=== PATIENT | female | born 1935 | race African-American/Black ===

== ENCOUNTER 2017-06-23 10:04 | Inpatient (IN) ==
[2017-06-23] MEDS ORDERED: 0.9 % Sodium Chloride 500 ML IVC ONE (10:11)
[2017-06-23] MEDS ORDERED: Ondansetron 4 MG/2 ML VIAL IVP ONE (10:15)
--- NOTE | 2017-06-23 10:16 | Emergency Department Note ---
Disposition Clinical Impression: Syncope Qualifiers: Syncope type: unspecified Qualified Code(s): R55 - Syncope and collapse Fall Qualifiers: Encounter type: initial encounter Qualified Code(s): W19.XXXA - Unspecified fall, initial encounter Altered mental status Qualifiers: Altered mental status type: unspecified Qualified Code(s): R41.82 - Altered mental status, unspecified Disposition: Admitted As Inpatient Condition: Fair Time of Disposition: 14:26 Fall HPI - General Chief Complaint: ED Fall Stated Complaint: fall Time Seen by Provider: 06/23/17 10:07 Source: patient, EMS Mode of arrival: EMS Limitations: no limitations Nursing Notes Reviewed: Yes Vital Signs Reviewed: Yes - History of Present Illness HPI Narrative: 81-year-old female with a history of hypertension presents via EMS for concerns after a fall. EMS provided the history stated the patient has been having a cough and cold symptoms for the past week. Patient also was having some nausea vomiting. Patient reports that she has been vomiting but denies any cough or cold. Patient does state that she ran into a door. Denies any loss of consciousness. Denies being on any blood thinners. Denying chest pain or shortness of breath. Patient is a poor historian. Anticipate further history once family arrives. - Related Data Home Medications Medication Instructions Recorded Confirmed Simvastatin [Zocor] 02/08/17 Previous Rx's Medication Instructions Recorded Lisinopril-HCTZ 20-12.5 [Prinzide 1 tab PO DAILY #30 tablet 02/08/17 20-12.5] Allergies Allergy/AdvReac Type Severity Reaction Status Date / Time No Known Allergies Allergy Verified 02/08/17 19:23 All systems ED: reviewed and negative except as stated. Constitutional: Reports: as per HPI. Denies: fever Eyes: Reports: as per HPI ENT ED: Reports: as per HPI Cardiovascular: Reports: as per HPI. Denies: chest pain Respiratory: Reports: as per HPI, cough. Denies: dyspnea Gastrointestinal: Reports: as per HPI, nausea, vomiting. Denies: abdominal pain Genitourinary: Reports: as per HPI Musculoskeletal: Reports: as per HPI Integumentary: Reports: as per HPI Neurological: Reports: as per HPI Psychiatric: Reports: as per HPI Endocrine: Reports: as per HPI Fall PMH - Past Medical History Medical history: Reports: diabetes, hypertension, other - Social History Smoking Status: Never smoker Alcohol use: Reports: none Physical Exam - General Limitations: no limitations, age General appearance: alert, in no apparent distress - Head Head exam: atraumatic, normocephalic, normal inspection - Eye Eye exam: Present: normal appearance, EOMI - ENT ENT exam: normal exam, mucous membranes moist - Neck Neck exam: Present: normal inspection, trachea midline - Chest Chest inspection: Present: normal inspection, symmetric chest wall rise - Respiratory Respiratory exam: Present: normal lung sounds bilaterally. Absent: respiratory distress - Cardiovascular Cardiovascular exam: Present: regular rate, normal rhythm - Abdominal Exam Abdominal exam: Present: soft, Non-Tender - Extremities Exam Extremities exam: Present: normal inspection. Absent: pedal edema - Back Exam Back exam: Present: normal inspection - Neurological Exam Neurological exam: Present: alert, CN II-XII intact Course Course Narrative: Patient seen and examined. Patient has no obvious injuries on exam. Patient appears to be alert and is appropriate. Patient will get a screening cardiopulmonary evaluation as well as a urinalysis which also get a chest x-ray she has been coughing during exam. And does not provide additional history. Patient is outside of the timeframe for Tamiflu and flu swab was not ordered. - Reevaluation(s) Reevaluation #1: Patient appears resting comfortably. Patient's sleeping. No acute distress. Time: 12:03 Reevaluation #2: Patient's family now present at bedside. Time: 13:21 Reevaluation #3: Had an extensive conversation with the family bedside. Family's concern about the patient's mental status as she has been acting more confused recently. Also is able to accurately describe the incident happened earlier today.The patient momentarily blacked out and hit her head. Denies hitting the floor. Family's concern because they are caring for her home and did not feel that they have the necessary resources. Time: 14:24 - Consultations Consultation #1: Spoke with Dr. Orta who is aware of the patient and admission; however, no tele beds available at this point and will continue to monitor in the ED. Time: 15:45 Vital Signs Temperature 98.8 F 06/23/17 10:10 Pulse Rate 69 06/23/17 10:10 Respiratory Rate 16 06/23/17 10:10 Blood Pressure 129/77 06/23/17 10:10 O2 Sat by Pulse Oximetry 95 06/23/17 10:10 Temperature 98.8 F 06/23/17 10:10 Pulse Rate 65 06/23/17 13:12 Respiratory Rate 14 06/23/17 17:42 Blood Pressure 115/64 06/23/17 17:42 O2 Sat by Pulse Oximetry 96 06/23/17 13:12 Oxygen Delivery Oxygen Delivery Room Air Fall - MDM Narrative Medical decision making narrative: 81-year-old female patient for evaluation for a fall. Initial history was obtained by the patient EMS. Further history provided the family. Family is concerned the patient had a syncopal fall was witnessed. Stable described the patient losing consciousness momentarily and hitting her head. Visit the patient has been more confused over the past couple days. Patient is not acting her baseline per family at bedside. Patient's exam is nonfocal. Patient has no lateralizing signs. Patient has been evaluated with chest x-ray , lab as well as UA. Patient's workup is essentially unremarkable. Patient's family is concerned they cannot care for at home. Patient has been having recurrent issues with ambulation and a fall. Given the patient's history and the family's concern the patient will be admitted for syncopal episode as well as PTOT evaluation with likely discharge planning. - Lab Data Lab results reviewed: Yes I reviewed the patient's lab results. Result diagrams: 06/23/17 10:36 06/23/17 10:36 Lab Results 06/23/17 06/23/17 06/23/17 Range/Units 10:36 10:36 10:36 WBC 7.8 (4.3-11.1) K/mcL RBC 3.42 L (3.82-4.97) M/mcL Hgb 10.9 L (11.5-15.4) g/dL Hct 32.3 L (35.3-44.9) % MCV 94.4 (83.0-100.0) fL MCH 31.9 (28.0-33.3) pg MCHC 33.7 (31.6-35.5) g/dL RDW 13.0 (11.5-14.5) % Plt Count 236 (140-400) K/mcL MPV 10.0 (9.4-12.4) fL Immature Gran % 0.4 (0-4) % Seg Neutrophils % 67.7 % Lymphocytes % 21.6 % Monocytes % 9.9 % Eosinophils % 0.1 % Basophils % 0.3 % Neutrophils # 5.3 (1.6-8.9) K/mcL Lymphocytes # 1.7 (0.6-4.6) K/mcL Monocytes # 0.8 (0.0-1.3) K/mcL Eosinophils # 0.0 (0.0-0.6) K/mcL Basophils # 0.0 (0.0-0.2) K/mcL Immature Plt Fraction 3.0 (1.1-6.1) % Sodium 132 L (136-145) mEq/L Potassium 3.1 L (3.5-5.1) mEq/L Chloride 100 (98-107) mEq/L Carbon Dioxide 26 (23-29) mEq/L BUN 20 (8-23) mg/dL Creatinine 1.29 H (0.60-1.20) mg/dL Est GFR ( Amer) 48 L (> 60) Est GFR (Non-Af Amer) 40 L (> 60) BUN/Creatinine Ratio 16 (6-26) Glucose 104 (70-105) mg/dL Calculated Osmolality 277 L (280-300) Calcium 8.4 L (8.6-10.3) mg/dL Total Bilirubin 0.3 (0.3-1.0) mg/dL Direct Bilirubin 0.0 (0.0-0.2) mg/dL Indirect Bilirubin 0.3 (0.0-1.2) mg/dL AST 32 (13-39) Units/L ALT 14 (7-52) Units/L Alkaline Phosphatase 34 (34-104) Units/L Troponin I < 0.03 (< 0.04) ng/mL Serum Total Protein 6.2 L (6.4-8.9) g/dL Albumin 3.3 L (3.5-5.7) g/dL Globulin 2.9 (2.4-3.5) g/dL Albumin/Globulin Ratio 1.1 (1.1-2.2) Urine Color (Yellow) Urine Clarity (Clear) Urine pH (5.0-8.0) pH Units Ur Specific [place] (1.010-1.025) Urine Protein (Neg-Trace) mg/dL Urine Glucose (UA) (Normal) mg/dL Urine Ketones (Negative) mg/dL Urine Blood (Negative) Urine Nitrite (Negative) Urine Bilirubin (Negative) Urine Urobilinogen (Normal) mg/dL Ur Leukocyte Esterase (Negative) Urine Microscopic RBC (0-3) per hpf Urine Microscopic WBC (0-3) per hpf Ur Squamous Epith Cells (None-Few) per lpf Amorphous Sediment (Few) Urine Bacteria (None-Few) per hpf Hyaline Casts (None-Few) per lpf Ur Culture Indicated? (NO) 06/23/17 Range/Units 11:54 WBC (4.3-11.1) K/mcL RBC (3.82-4.97) M/mcL Hgb (11.5-15.4) g/dL Hct (35.3-44.9) % MCV (83.0-100.0) fL MCH (28.0-33.3) pg MCHC (31.6-35.5) g/dL RDW (11.5-14.5) % Plt Count (140-400) K/mcL MPV (9.4-12.4) fL Immature Gran % (0-4) % Seg Neutrophils % % Lymphocytes % % Monocytes % % Eosinophils % % Basophils % % Neutrophils # (1.6-8.9) K/mcL Lymphocytes # (0.6-4.6) K/mcL Monocytes # (0.0-1.3) K/mcL Eosinophils # (0.0-0.6) K/mcL Basophils # (0.0-0.2) K/mcL Immature Plt Fraction (1.1-6.1) % Sodium (136-145) mEq/L Potassium (3.5-5.1) mEq/L Chloride (98-107) mEq/L Carbon Dioxide (23-29) mEq/L BUN (8-23) mg/dL Creatinine (0.60-1.20) mg/dL Est GFR ( Amer) (> 60) Est GFR (Non-Af Amer) (> 60) BUN/Creatinine Ratio (6-26) Glucose (70-105) mg/dL Calculated Osmolality (280-300) Calcium (8.6-10.3) mg/dL Total Bilirubin (0.3-1.0) mg/dL Direct Bilirubin (0.0-0.2) mg/dL Indirect Bilirubin (0.0-1.2) mg/dL AST (13-39) Units/L ALT (7-52) Units/L Alkaline Phosphatase (34-104) Units/L Troponin I (< 0.04) ng/mL Serum Total Protein (6.4-8.9) g/dL Albumin (3.5-5.7) g/dL Globulin (2.4-3.5) g/dL Albumin/Globulin Ratio (1.1-2.2) Urine Color Yellow (Yellow) Urine Clarity Clear (Clear) Urine pH 6.0 (5.0-8.0) pH Units Ur Specific [place] 1.025 (1.010-1.025) Urine Protein 30 H (Neg-Trace) mg/dL Urine Glucose (UA) Normal (Normal) mg/dL Urine Ketones Negative (Negative) mg/dL Urine Blood Negative (Negative) Urine Nitrite Negative (Negative) Urine Bilirubin Negative (Negative) Urine Urobilinogen Normal (Normal) mg/dL Ur Leukocyte Esterase Negative (Negative) Urine Microscopic RBC 0-3 (0-3) per hpf Urine Microscopic WBC 0-3 (0-3) per hpf Ur Squamous Epith Cells Many H (None-Few) per lpf Amorphous Sediment Few (Few) Urine Bacteria Few (None-Few) per hpf Hyaline Casts None Seen (None-Few) per lpf Ur Culture Indicated? NO (NO) - Radiology Data Radiology results reviewed: Yes I reviewed the patient's radiology results. Chest X-Ray 06/23/17 10:11 IMPRESSION: No acute process. D/ / Maria Luisa Samuel MD / Maria Luisa Samuel MD Interpreting Provider: Maria Luisa Samuel MD Head CT 06/23/17 10:21 IMPRESSION: No acute intracranial abnormality. Chronic pansinusitis. D/ / Néstor Alvse MD / Néstor Alves MD Interpreting Provider: Néstor Alves MD - EKG Data EKG attestation: Yes I reviewed and interpreted this EKG. EKG shows normal: sinus rhythm Rate: normal Rhythm: NSR [place]/QRS: normal T wave inversions noted in: v1 Interpretation: no acute changes Attestation Statement - Attestation Attestation: I examined this patient and my medical decision-making was reviewed with the Resident Physician. I agree with the documented findings, disposition and treatment plan as described except to the extent set forth below. 81-year-old female presents the ED because of syncope and fall. This was witnessed by family. She apparently became abruptly weak and then fell forward striking her head on a door and then was caught by a family member preventing her from hitting the ground. Denies any complaints upon arrival except for feeling generally weak. No associated palpitations, chest discomfort, dyspnea or diaphoresis. No focal weakness. Denies headache. She has similar episode a few days ago she did not tell anyone about. Pleasant, slightly confused elderly female in no apparent distress. Mucous membranes are slightly dry. Oropharynx clear. Neck is supple and nontender. Trachea midline. No JVD. No carotid bruits appreciated by auscultation. Chest is clear to auscultation bilaterally. Cardiac exam is regular without appreciable murmurs. Abdomen soft, nondistended and nontender. Extremities warm and dry. Neurologic exam is nonfocal. CT imaging of her head shows pansinusitis that any acute process. Metabolic workup was unremarkable. EKG without acute process. She is admitted for further workup and evaluation for the weakness and the recurring syncope
[2017-06-23 10:44] LABS: Basophils % 0.3 %; Eosinophils % 0.1 %; Hematocrit 32.3 % (35.3-44.9); Hemoglobin 10.9 g/dL (11.5-15.4); Immature Granulocytes % 0.4 % (0-4); Lymphocytes # 1.7 K/mcL (0.6-4.6); Lymphocytes % 21.6 %; Mean Corpuscular HGB Conc 33.7 g/dL (31.6-35.5); Mean Corpuscular Hemoglobin 31.9 pg (28.0-33.3); Mean Corpuscular Volume 94.4 fL (83.0-100.0); Monocytes # 0.8 K/mcL (0.0-1.3); Monocytes % 9.9 %; Neutrophils # 5.3 K/mcL (1.6-8.9); Platelet Count 236 K/mcL (140-400); Red Blood Count 3.42 M/mcL (3.82-4.97); Segmented Neutrophils % 67.7 %
[2017-06-23 11:01] LABS: Albumin 3.3 g/dL (3.5-5.7); Albumin/Globulin Ratio 1.1 (1.1-2.2); Bilirubin,Indirect 0.3 mg/dL (0.0-1.2); Bilirubin,Total 0.3 mg/dL (0.3-1.0); Calcium 8.4 mg/dL (8.6-10.3); Globulin 2.9 g/dL (2.4-3.5); Potassium 3.1 mEq/L (3.5-5.1); Total Protein 6.2 g/dL (6.4-8.9)
[2017-06-23 12:31] LABS: Bilirubin,Urine Negative (Negative); Blood,Urine Negative (Negative); Clarity,Urine Clear (Clear); Color,Urine Yellow (Yellow); Glucose,Urine (UA) Normal (Normal); Ketones,Urine Negative (Negative); Leukocyte Esterase,Urine Negative (Negative); Nitrite,Urine Negative (Negative); Protein,Urine 30 mg/dL (Neg-Trace); Specific Gravity,Urine 1.025 (1.010-1.025); Urobilinogen,Urine Normal (Normal)
[2017-06-23 12:36] LABS: Hyaline Casts,Urine None Seen per lpf (None-Few); RBC,Urine 0-3 per hpf (0-3); Squamous Epithelial Cell,Urine Many per lpf (None-Few); WBC,Urine 0-3 per hpf (0-3)
[2017-06-23 12:48] LABS: Amorphous Sediment,Urine Few (Few); Bacteria,Urine Few per hpf (None-Few)
[2017-06-23] MEDS ORDERED: Naloxone 0.4 MG/ML INJ IVP PRN (20:32)
[2017-06-23] MEDS ORDERED: Ondansetron ODT 4 MG TAB.RAPDIS SL PRN (20:32)
[2017-06-23] MEDS ORDERED: Acetaminophen 325 MG TABLET PO PRN (20:32)
[2017-06-23] MEDS ORDERED: D5% in Water 1,000 ML IVC PRN (21:07)
[2017-06-23] MEDS ORDERED: *HR* Dextrose 50 % in Water (Syg) 50 ML SYRINGE IVP PRN (21:07)
[2017-06-23] MEDS ORDERED: Dextrose Gel 15 GM/37.5 ML TUBE PO PRN ×2 (21:07)
--- NOTE | 2017-06-23 21:14 | Internal Med History&Physical ---
<Kristopher Moran - Last Filed: 06/23/17 22:44> Date of Encounter: 06/23/17 Time of Encounter: 20:00 Assessment and Plan (1) Fall Current visit: Yes Status: Acute Witnessed fall with transient loss of consciousness, per ED family states patient has been more confused lately, which they state is not her baseline, reported mild head contusion forehead with CT head negative for acute infarct, no abrasion. UA negative. CBC, electrolytes unremarkable, Creatinine 1.29, .91 in 2012 per chart review. Cardiac telemetry to assess syncopal cause. Structural echocardiogram in morning. While severe bilateral carotid stenosis unlikely, will order carotid doppler. PT/OT/social science analyst consult. Qualifiers: Encounter type: initial encounter Qualified Code(s): W19.XXXA - Unspecified fall, initial encounter (2) Altered mental status Current visit: Yes Status: Acute Unspecified etiology, no diagnosis of dementia, baseline difficult to determine , family says patient has been increasingly confused in past few weeks, no CT findings showing overt atrophy/mass effect/hydrocephalus/bleed. Qualifiers: Altered mental status type: unspecified Qualified Code(s): R41.82 - Altered mental status, unspecified (3) HTN (hypertension) Current visit: Yes Status: Acute Normotensive, continuing HCTZ-Lisinopril Qualifiers: Hypertension type: essential hypertension Qualified Code(s): I10 - Essential (primary) hypertension (4) LAKIA (acute kidney injury) Current visit: Yes Status: Acute Possible underlying CKD, GFR 48, Creatinine 1.29, per eCW chart, last Creatinine documented in 2012 at .91. Gentle hydration. On HCTZ/Lisinopril. (5) Hyponatremia Current visit: Yes Status: Acute On gentle hydration for LAKIA, on soft diet, monitoring BMP. (6) Hypokalemia Current visit: Yes Status: Acute Repleting (7) DVT prophylaxis Current visit: Yes Status: Acute CT head negative for bleed. SQ heparin 5000U q12h. Internal Medicine - H&P: HPI Admitted From: Emergency Dept Plans for Post Hospital Care: Transfer Halfway Facility History of present illness: Ms. Castellon is a 81 year old female with PMH HTN, HLD, DM2 who presents by EMS for witnessed fall with momentary loss of consciousness today. Per family, patient appeared to have become suddenly weak, hit her head against a door and was caught by family member, they state this behavior of gait change and weakness started only in the past few weeks. Pt has had a non-productive cough for the past week, without n/v/d, CXR negative. CT head negative for hydrocephalus/bleed/inderjit atrophy. Currently on telemetry. Past Med Surg Social Fam HX - Past Medical History Medical history: diabetes, hypertension, other Psychiatric history: no psych history - Social History Smoking Status: Never smoker Smokeless Tobacco Status: No Alcohol use: none Drug use: none - Family History Mother History Unknown: Yes Father History Unknown: Yes Internal Medicine - H&P: Meds Lisinopril-HCTZ 20-12.5 [Prinzide 20-12.5] 1 tab PO DAILY #30 tablet 02/08/17 [ Rx] Simvastatin [Zocor] 20 mg PO DAILY 02/08/17 [History] Multivit-Min/FA/Lycopen/Lutein [Centrum Silver Tablet] 1 each PO DAILY 06/23/17 [History] 3 Allergy/AdvReac Type Severity Reaction Status Date / Time No Known Allergies Allergy Verified 02/08/17 19:23 All Systems PM: A 10-system review of systems was performed and is negative for pertinent findings except as documented above in the HPI. - Constitutional Vitals: Temp Pulse Resp BP Pulse Ox 99.4 F 67 18 127/68 97 06/23/17 18:37 06/23/17 18:37 06/23/17 18:37 06/23/17 18:37 06/23/17 18:37 General appearance: Present: A&O X 1 (conversant, oriented to name, not to month or location), no acute distress. Absent: answers questions appropriately - Head Head exam: Present: atraumatic, normal inspection - ENT Additional comments: no dentition - Neck Neck exam general surgery: Present: full ROM - Respiratory Respiratory exam: Present: CTAB. Absent: tachypnea - Cardiovascular Cardiovascular exam: Present: RRR, +S1, +S2 - Extremities Exam Extremities exam: Present: normal capillary refill, warm. Absent: calf tenderness - Skin Additional comments: areas of hyper and hypopigmentation Internal Med - H&P Results - Labs CBC & Chem 7: 06/23/17 10:36 06/23/17 10:36 <Charity Jean - Last Filed: 06/24/17 03:38> Date of Encounter: 06/23/17 Internal Medicine - H&P: HPI History of present illness: Ms. Castellon is a 81 year old female All Systems PM: A 10-system review of systems was performed and is negative for pertinent findings except as documented above in the HPI. - Constitutional Vitals: Temp Pulse Resp BP Pulse Ox 99.5 F 70 15 121/68 96 06/23/17 22:49 06/23/17 22:49 06/23/17 22:49 06/23/17 22:49 06/23/17 22:49 Internal Med - H&P Results - Labs CBC & Chem 7: 06/23/17 10:36 06/23/17 10:36 - Attending Attestation Patient is an 81y/o female admitted for acute change in mental status and s/p fall. Unclear of patient's baseline mental status Currently oriented to self AMS of unclear etiology, no metabolic insufficiencies present to contribute to the acute change electrolyte abnormalities noted and are repleting will obtain 2D echo, carotid dopplers for syncope work up Heparin SQ for DVT ppx Gentle IV fluids for LAKIA labs and vitals reviewed. Case discussed with resident physician Kristopher Moran, I agree with his documented findings, assessment, and plan except as listed above.
[2017-06-23 21:39] LABS: Hemoglobin A1C 5.7 %
[2017-06-24] MEDS: *HR* Heparin 5,000 UNIT/ML VIAL SQ SCH ×3 (00:02→17:52)
[2017-06-24] MEDS: 0.9 % Sodium Chloride 1,000 ML IVC SCH ×3 (00:02→21:40)
[2017-06-24 06:12] LABS: Basophils % 0.4 %; Hemoglobin 9.8 g/dL (11.5-15.4); Immature Granulocytes % 0.2 % (0-4); Lymphocytes # 1.6 K/mcL (0.6-4.6); Lymphocytes % 31.3 %; Mean Corpuscular HGB Conc 33.8 g/dL (31.6-35.5); Mean Corpuscular Hemoglobin 31.9 pg (28.0-33.3); Mean Corpuscular Volume 94.5 fL (83.0-100.0); Mean Platelet Volume 9.8 fL (9.4-12.4); Monocytes # 0.6 K/mcL (0.0-1.3); Monocytes % 11.2 %; Neutrophils # 2.9 K/mcL (1.6-8.9); Platelet Count 204 K/mcL (140-400); Red Blood Count 3.07 M/mcL (3.82-4.97); Segmented Neutrophils % 56.9 %
[2017-06-24 06:32] LABS: Calcium 7.9 mg/dL (8.6-10.3); Magnesium 1.7 mg/dL (1.6-2.6); Phosphorous 2.8 mg/dL (2.7-4.5); Potassium 3.3 mEq/L (3.5-5.1)
[2017-06-24] MEDS ORDERED: Insulin LISPRO 300 UNITS/3 ML VIAL SQ SCH ×2 (07:30→21:00)
--- NOTE | 2017-06-24 08:37 | Electrocardiograph Report ---
[facility] Test Date: 2017-06-23 Pat Name: Michael Castellon Department: 102 Room: 3B31 Gender: F Kitchen And Bath Designer: : [id number] Requested By: Dimitry Samaniego Order Number: [id number] Reading MD: Manuel Lopez DO Measurements Intervals [place] Rate: 64 P: 5 VT: 126 QRS: -22 QRSD: 74 T: 29 QT: 399 QTc: 409 Interpretive Statements SINUS RHYTHM WITH SINUS ARRHYTHMIA BORDERLINE LEFT AXIS DEVIATION [QRS AXIS < -20] WARNING: DATA QUALITY MAY AFFECT INTERPRETATION Electronically Signed On 06-24-2017 8:35:54 EST by Manuel Lopez DO
[2017-06-24] MEDS ORDERED: Lisinopril-HCTZ 20-12.5mg TABLET PO SCH (09:00)
--- NOTE | 2017-06-24 15:42 | Internal Med Progress Note ---
Date of Encounter: 06/24/17 Time of Encounter: 15:40 - Assessment and plan (1) Acute metabolic encephalopathy Current Visit: Yes Status: Acute Assessment and plan: with increased confusion over the past couple weeks. Patient lives with granddaughter who is 24-hour caregiver. Head CT nonacute. Mentation improved on 06/24 but not back to baseline. Brain MRI pending. (2) Fall Current Visit: Yes Status: Acute Assessment and plan: Witnessed fall with transient loss of consciousness, per ED family states patient has been more confused lately, which they state is not her baseline, reported mild head contusion forehead with CT head negative for acute infarct, no abrasion. Etiology unknown at this time. No obvious metabolic or infectious source. Brain MRI, echo and bilateral carotid Dopplers pending. Qualifiers: Encounter type: initial encounter Qualified Code(s): W19.XXXA - Unspecified fall, initial encounter (3) HTN (hypertension) Current Visit: Yes Status: Acute Assessment and plan: per hx. BP controlled. Continue home GERALD. Qualifiers: Hypertension type: essential hypertension Qualified Code(s): I10 - Essential (primary) hypertension (4) Hyponatremia Current Visit: Yes Status: Acute Assessment and plan: Mild, likely secondary to HCTZ. Diuretic stop, monitor BP. Monitor repeat sodium level. (5) LAKIA (acute kidney injury) Current Visit: Yes Status: Acute Assessment and plan: Cr 1.29 on arrival; baseline normal. Likely secondary to poor by mouth intake. Creatinine improved with gentle IV fluids. Monitor repeat renal function. (6) History of diabetes mellitus, type II Current Visit: Yes Status: Acute Assessment and plan: per hx but not currently on treatment. Blood sugars well controlled. Continue SSI, Hgb A1c pending (7) DVT prophylaxis Current Visit: Yes Status: Acute Assessment and plan: heparin - Subjective Interval history: Seen and examined at bedside. Patient is new to me, information obtained from chart review and granddaughter bedside as patient remains confused and unable to provide details. Granddaughter tells me that patient lives with her and she is patient's 24-hour caregiver. Granddaughter says the patient has not felt well over the past couple weeks with fevers and chills. Yesterday she had an abrupt onset of acute confusion when she was found to granddaughter to give the dog cough syrup. Granddaughter reports patient falling shortly after confusion began. Mentation improved on my exam but still not back to baseline. He sent has no complaints. - Constitutional Vitals: Temp Pulse Resp BP Pulse Ox 98.3 F 68 16 107/64 96 06/24/17 15:19 06/24/17 15:19 06/24/17 15:19 06/24/17 15:19 06/24/17 15:19 General appearance: Present: A&O X 1 (conversant, oriented to name, not to month or location), no acute distress. Absent: answers questions appropriately - Head Head exam: Present: atraumatic, normocephalic - Eye Eye exam: Present: PERRL, conjuntiva pink, sclera anicteric Pupils: Present: PERRL - Neck Neck exam general surgery: Present: supple, trachea midline. Absent: lymphadenopathy - Respiratory Respiratory exam: Present: CTAB. Absent: accessory muscle use, rales, rhonchi, wheezes - Cardiovascular Cardiovascular exam: Present: RRR, +S1, +S2. Absent: diastolic murmur, gallop, rubs, systolic murmur - GI/Abdominal GI/Abdominal exam: Present: normal bowel sounds, soft, no peritoneal signs. Absent: distended, tenderness - Extremities Exam Extremities exam: Present: warm, radial pulses palpable and symmetrical. Absent : calf tenderness, cyanotic, pedal edema - Neurological Exam Neurological exam: Present: CN II-XII intact, oriented X3, no focal deficits. Absent: pronater drift, facial droop, speech deficit - Skin Skin exam: Present: dry, intact Internal Medicine: Result - Labs CBC & Chem 7: 06/24/17 06:01 06/24/17 06:01 Labs: Short CBC 06/24/17 Range/Units 06:01 WBC 5.1 (4.3-11.1) K/mcL Hgb 9.8 L (11.5-15.4) g/dL Hct 29.0 L (35.3-44.9) % Plt Count 204 (140-400) K/mcL Neutrophils # 2.9 (1.6-8.9) K/mcL BMP 06/24/17 06:01 Sodium 135 L Potassium 3.3 L Chloride 105 Carbon Dioxide 23 BUN 19 Creatinine 1.17 Glucose 77 Calcium 7.9 L - Impressions Impressions Echocardiogram 06/24/17 22:13 Impressions: LVEF 60-65%. Normal LV chamber size, wall thickness and function. Mild left ventricular diastolic dysfunction. Normal right ventricular structure and function. Mild aortic regurgitation. No evidence of pulmonary hypertension. Left Ventricular Wall Motion: Rest Echo Findings All wall segments showed normal motion. Findings: Study Quality * Technically adequate exam. ECG Findings * Normal sinus rhythm. Left Ventricle * LVEF 60-65%. * Normal LV chamber size, wall thickness and function. * Mild left ventricular diastolic dysfunction. Right Ventricle * Normal right ventricular structure and function. Left Atrium * Mildly dilated left atrium. Right Atrium * Normal right atrial size. Interatrial Septum * Interatrial septum not well evaluated. Aortic Valve * Trileaflet aortic valve. * Mild aortic regurgitation. * No aortic stenosis. Mitral Valve * Normal mitral valve structure and function. * No mitral stenosis. * Trace mitral regurgitation. Tricuspid Valve * Normal tricuspid valve structure and function. * Trace tricuspid regurgitation. * No evidence of pulmonary hypertension. Pulmonic Valve * Normal pulmonic valve structure and function. * Trace pulmonic regurgitation. Aorta * Normally sized aortic root. Pericardium * The pericardium appears normal. IVC * Normal IVC dimensions and inspiratory collapse. Pulmonary Artery * Normal visualized portions of the main pulmonary artery. Consult Discharge Plan - Plan Referrals: NONE,PCP [Primary Care Provider] -
[2017-06-24 19:39] LABS: Adenovirus Not Detected (Not Detect); Bordetella Pertussis Not Detected (Not Detect); Chlamydophila pneumoniae Not Detected (Not Detect); Coronavirus 229E Not Detected (Not Detect); Coronavirus HKU1 Not Detected (Not Detect); Coronavirus NL63 Not Detected (Not Detect); Coronavirus OC43 Not Detected (Not Detect); Human Metapneumovirus Not Detected (Not Detect); Human Rhinovirus/Enterovirus Not Detected (Not Detect); Influenza A Subtype 2009 H1 Not Detected (Not Detect); Influenza A Untypeable Not Detected (Not Detect); Influenza B Not Detected (Not Detect); Mycoplasma pneumoniae Not Detected (Not Detect); Parainfluenza Virus 1 Not Detected (Not Detect); Parainfluenza Virus 2 Not Detected (Not Detect); Parainfluenza Virus 3 Not Detected (Not Detect); Parainfluenza Virus 4 Not Detected (Not Detect); Respiratory Syncytial Virus ***DETECTED*** (Not Detect)
[2017-06-25 04:18] LABS: Calcium 7.8 mg/dL (8.6-10.3); Potassium 3.1 mEq/L (3.5-5.1)
[2017-06-25] MEDS: *HR* Heparin 5,000 UNIT/ML VIAL SQ SCH ×2 (05:39→18:59)
[2017-06-25] MEDS ORDERED: Lisinopril 20 MG TABLET PO SCH (09:00)
[2017-06-25] MEDS: Oseltamivir Phosphate 30 MG CAPSULE PO SCH (09:54)
[2017-06-25] MEDS: Lisinopril-HCTZ 20-12.5mg TABLET PO SCH (09:54)
[2017-06-25] MEDS: 0.9 % Sodium Chloride 1,000 ML IVC SCH (13:39)
--- NOTE | 2017-06-25 14:05 | Internal Med Progress Note ---
Date of Encounter: 06/25/17 Time of Encounter: 10:45 - Assessment and plan (1) Acute metabolic encephalopathy Current Visit: Yes Status: Acute Assessment and plan: lives with granddaughter who is 24-hour caregiver; granddaughter reports increased confusion and short-term memory loss over the past few weeks. Head CT non-acute, brain MRI negative for infarct. UA not indicative of UTI. Suspect she has some component of underlying dementia/cognitive impairment with possible superimposed delirium secondary to influenza. Continue treating underlying cause, supportive care. (2) Influenza A Current Visit: Yes Status: Acute Assessment and plan: Symptomatic with general weakness, malaise and cough. Respiratory PCR positive for influenza A, RSV. Tamiflu started day 1. Supportive care. (3) Fall Current Visit: Yes Status: Acute Assessment and plan: witnessed fall with transient loss of consciousness. Head CT, brain MRI unremarkable. TTE with EF 60%, mild diastolic dysfunction, mild aortic regurgitation, no wall motion abnormalities. Bilateral carotid Dopplers with nonstenotic plaque. Details unclear as patient is not able to articulate symptoms prior to fall. Could possibly be mechanical. Nonetheless patient was evaluated by PT/OT who is recommending SNF. Granddaughter initially declined but now is agreeable. Will need to consult social work on Tuesday to assist with discharge planning. Qualifiers: Encounter type: initial encounter Qualified Code(s): W19.XXXA - Unspecified fall, initial encounter (4) HTN (hypertension) Current Visit: Yes Status: Acute Assessment and plan: per hx. BP controlled. Continue home GERALD. Qualifiers: Hypertension type: essential hypertension Qualified Code(s): I10 - Essential (primary) hypertension (5) LAKIA (acute kidney injury) Current Visit: Yes Status: Acute Assessment and plan: Cr 1.29 on arrival; baseline normal. Likely secondary to poor by mouth intake. Creatinine improved with gentle IV fluids. Monitor repeat renal function. (6) History of diabetes mellitus, type II Current Visit: Yes Status: Acute Assessment and plan: per hx but not currently on treatment. Hgb A1c 5.7%, appears diet controlled. Continue SSI (7) DVT prophylaxis Current Visit: Yes Status: Acute Assessment and plan: heparin - Subjective Interval history: Seen and examined at bedside; alert to self and place only. She is able to tell me her name, she no she is in the hospital. Unable to tell me months, year or president. No family at bedside for collateral. Says she is tired and weak, no chest pain or shortness of breath. Spoke with granddaughter over the phone and updated her. Granddaughter states that she is agreeable for patient to go to SNF for short-term rehabilitation. - Constitutional Vitals: Temp Pulse Resp BP Pulse Ox 98.7 F 59 16 114/75 97 06/25/17 12:23 06/25/17 12:23 06/25/17 12:23 06/25/17 12:23 06/25/17 12:23 General appearance: Present: A&O X 1 (conversant, oriented to name, not to month or location), no acute distress. Absent: answers questions appropriately - Head Head exam: Present: atraumatic, normocephalic - Eye Eye exam: Present: PERRL, conjuntiva pink, sclera anicteric Pupils: Present: PERRL - Neck Neck exam general surgery: Present: supple, trachea midline. Absent: lymphadenopathy - Respiratory Respiratory exam: Present: CTAB. Absent: accessory muscle use, rales, rhonchi, wheezes - Cardiovascular Cardiovascular exam: Present: RRR, +S1, +S2. Absent: diastolic murmur, gallop, rubs, systolic murmur - GI/Abdominal GI/Abdominal exam: Present: normal bowel sounds, soft, no peritoneal signs. Absent: distended, tenderness - Extremities Exam Extremities exam: Present: warm, radial pulses palpable and symmetrical. Absent : calf tenderness, cyanotic, pedal edema - Neurological Exam Neurological exam: Present: CN II-XII intact, oriented X3, no focal deficits. Absent: pronater drift, facial droop, speech deficit - Skin Skin exam: Present: dry, intact Internal Medicine: Result - Labs CBC & Chem 7: 06/24/17 06:01 06/25/17 03:50 Labs: BMP 06/25/17 03:50 Sodium 135 L Potassium 3.1 L Chloride 107 Carbon Dioxide 22 L BUN 17 Creatinine 1.07 Glucose 69 L Calcium 7.8 L - Impressions Impressions Brain MRI 06/24/17 15:39 IMPRESSION: 1. Motion limited evaluation. 2. No acute intracranial abnormality. 3. Mild chronic white matter microvascular ischemic changes. 4. Paranasal sinusitis. D/ / Antwon Multani / Antwon Multani Interpreting Provider: Antwon Multani Consult Discharge Plan - Plan Referrals: NONE,PCP [Primary Care Provider] -
[2017-06-26] MEDS: 0.9 % Sodium Chloride 1,000 ML IVC SCH (03:53)
[2017-06-26] MEDS: *HR* Heparin 5,000 UNIT/ML VIAL SQ SCH ×2 (05:27→16:22)
[2017-06-26] MEDS: Lisinopril-HCTZ 20-12.5mg TABLET PO SCH (10:24)
[2017-06-26] MEDS: Oseltamivir Phosphate 30 MG CAPSULE PO SCH (10:24)
--- NOTE | 2017-06-26 14:44 | Internal Med Progress Note ---
Date of Encounter: 06/26/17 Time of Encounter: 11:30 - Assessment and plan (1) Acute metabolic encephalopathy Current Visit: Yes Status: Acute Assessment and plan: lives with granddaughter who is 24-hour caregiver; granddaughter reports increased confusion and short-term memory loss over the past few weeks. Head CT non-acute, brain MRI negative for infarct. UA not indicative of UTI. Suspect she has some component of underlying dementia/cognitive impairment with possible superimposed delirium secondary to influenza. Continue treating underlying cause, supportive care. (2) Influenza A Current Visit: Yes Status: Acute Assessment and plan: Symptomatic with general weakness, malaise and cough. Respiratory PCR positive for influenza A, RSV. Tamiflu started day 1. Supportive care. (3) Fall Current Visit: Yes Status: Acute Assessment and plan: witnessed fall with transient loss of consciousness. Head CT, brain MRI unremarkable. TTE with EF 60%, mild diastolic dysfunction, mild aortic regurgitation, no wall motion abnormalities. Bilateral carotid Dopplers with nonstenotic plaque. Details unclear as patient is not able to articulate symptoms prior to fall. Could possibly be mechanical. Nonetheless patient was evaluated by PT/OT who is recommending SNF. Granddaughter initially declined but now is agreeable. Will need to consult social work on Tuesday to assist with discharge planning. Qualifiers: Encounter type: initial encounter Qualified Code(s): W19.XXXA - Unspecified fall, initial encounter (4) HTN (hypertension) Current Visit: Yes Status: Acute Assessment and plan: per hx. BP controlled. Continue home GERALD. Qualifiers: Hypertension type: essential hypertension Qualified Code(s): I10 - Essential (primary) hypertension (5) LAKIA (acute kidney injury) Current Visit: Yes Status: Acute Assessment and plan: Cr 1.29 on arrival; baseline normal. Likely secondary to poor by mouth intake. Creatinine improved with gentle IV fluids. Monitor repeat renal function. (6) History of diabetes mellitus, type II Current Visit: Yes Status: Acute Assessment and plan: per hx but not currently on treatment. Hgb A1c 5.7%, appears diet controlled. Continue SSI (7) DVT prophylaxis Current Visit: Yes Status: Acute Assessment and plan: heparin - Subjective Interval history: Seen and examined at bedside; no acute change in assessment to report. Patient does not provide much details. Says she does not feel well and does not have much of an appetite. Discussed with RN who noted she did not eat breakfast. No family at bedside for collateral. Awaiting social work or involvement on as patient will need SNF placement. - Constitutional Vitals: Temp Pulse Resp BP Pulse Ox 97.8 F 82 16 147/56 98 06/26/17 10:32 06/26/17 10:32 06/26/17 10:32 06/26/17 10:32 06/26/17 10:32 General appearance: Present: A&O X 1 (conversant, oriented to name, not to month or location), no acute distress. Absent: answers questions appropriately - Head Head exam: Present: atraumatic, normocephalic - Eye Eye exam: Present: PERRL, conjuntiva pink, sclera anicteric Pupils: Present: PERRL Additional comments: blind - Neck Neck exam general surgery: Present: supple, trachea midline. Absent: lymphadenopathy - Respiratory Respiratory exam: Present: CTAB. Absent: accessory muscle use, rales, rhonchi, wheezes - Cardiovascular Cardiovascular exam: Present: RRR, +S1, +S2. Absent: diastolic murmur, gallop, rubs, systolic murmur - GI/Abdominal GI/Abdominal exam: Present: normal bowel sounds, soft, no peritoneal signs. Absent: distended, tenderness - Extremities Exam Extremities exam: Present: warm, radial pulses palpable and symmetrical. Absent : calf tenderness, cyanotic, pedal edema - Neurological Exam Neurological exam: Present: CN II-XII intact, oriented X3, no focal deficits. Absent: pronater drift, facial droop, speech deficit - Skin Skin exam: Present: dry, intact Internal Medicine: Result - Labs CBC & Chem 7: 06/24/17 06:01 06/25/17 03:50 Consult Discharge Plan - Plan Referrals: NONE,PCP [Primary Care Provider] -
[2017-06-27] MEDS: *HR* Heparin 5,000 UNIT/ML VIAL SQ SCH ×2 (05:03→18:49)
[2017-06-27] MEDS: Lisinopril-HCTZ 20-12.5mg TABLET PO SCH (09:38)
[2017-06-27] MEDS: Oseltamivir Phosphate 30 MG CAPSULE PO SCH (09:38)
--- NOTE | 2017-06-27 13:58 | Internal Med Progress Note ---
Date of Encounter: 06/27/17 Time of Encounter: 08:40 - Assessment and plan (1) Acute metabolic encephalopathy Current Visit: Yes Status: Acute Assessment and plan: Family reports increased confusion and short-term memory loss over the last few weeks. Patient most likely has underlying dementia, may have superimposed delirium secondary to influenza. Today, patient was able to state that she was in the hospital, and it was June, and her full name. Head CT and brain MRI negative for infarct. Urine negative for UTI. Chest x- ray negative for effusion or infiltrate. Supportive care plus Tamiflu for influenza Attending monitor patient condition and labs (2) Influenza A Current Visit: Yes Status: Acute Assessment and plan: Gen. weakness, body aches and cough. Respiratory PCR positive for influenza A, as well as RSV. Continue supportive care and Tamiflu. Dose 2 out of 10 given. (3) Fall Current Visit: Yes Status: Acute Assessment and plan: Patient with witnessed fall with loss of consciousness. The patient is unable to verbalize symptoms prior to the fall. She was evaluated by PT/OT who is recommending sniff. Patient lives with granddaughter who is agreeable to placement. field services analyst has been consulted. Head CT, brain MRI negative for acute infarct. Echo revealed EF of 60% mild LV RIDGE, mild AR. Bilateral carotid Dopplers with nonstenotic plaque. PT/OT in the hospital. field services analyst on board for discharge planning Patient near nurses station Fall precautions Qualifiers: Encounter type: initial encounter Qualified Code(s): W19.XXXA - Unspecified fall, initial encounter (4) HTN (hypertension) Current Visit: Yes Status: Acute Assessment and plan: Chronic. Continue home medications. Well controlled. Monitor vitals per admission orders Qualifiers: Hypertension type: essential hypertension Qualified Code(s): I10 - Essential (primary) hypertension (5) History of diabetes mellitus, type II Current Visit: Yes Status: Acute Assessment and plan: A1c 5.7. SSI, diabetic diet, continue accuchecks achs. (6) DVT prophylaxis Current Visit: Yes Status: Acute Assessment and plan: Hepain SQ (7) LAKIA (acute kidney injury) Current Visit: Yes Status: Acute Assessment and plan: Improving. Sr Cr 1.07, GR 49 Continue to avoid nephrotoxins and continue gentle IVF hydration. Most likely due to poor po intake prior to admission due to Influenza. - Time Spent With Patient less than 15 minutes - Subjective Interval history: Pt was assessed at bedside at 0940 a.m. she was alert and awake, oriented to name and place. She denies headache, nausea, vomiting, abdominal pain. She denies chest pain or shortness of breath. Per social work note, family is agreeable to placement. - Constitutional Vitals: Temp Pulse Resp BP Pulse Ox 97.8 F 74 16 136/83 98 06/27/17 10:29 06/27/17 10:29 06/27/17 10:29 06/27/17 10:29 06/27/17 10:29 General appearance: Present: cooperative, A&O X 2, pleasant, no acute distress. Absent: answers questions appropriately - Head Head exam: Present: atraumatic, normal inspection, normocephalic - Eye Eye exam: Present: conjuntiva pink, sclera anicteric - Neck Neck exam general surgery: Present: supple, trachea midline. Absent: lymphadenopathy - Respiratory Respiratory exam: Present: CTAB. Absent: accessory muscle use, rales, rhonchi, wheezes - Cardiovascular Cardiovascular exam: Present: RRR, +S1, +S2. Absent: diastolic murmur, gallop, rubs, systolic murmur - GI/Abdominal GI/Abdominal exam: Present: normal bowel sounds, soft. Absent: distended, hepatomegaly, tenderness - Extremities Exam Extremities exam: Present: normal capillary refill, warm, radial pulses palpable and symmetrical. Absent: calf tenderness, cyanotic, pedal edema - Neurological Exam Neurological exam: Present: alert, altered, oriented X3, no focal deficits. Absent: facial droop, speech deficit - Skin Skin exam: Present: dry, intact, normal color, warm. Absent: rash Internal Medicine: Result - Labs CBC & Chem 7: 06/24/17 06:01 06/25/17 03:50 Consult Discharge Plan - Plan Referrals: NONE,PCP [Primary Care Provider] -
[2017-06-28] MEDS: *HR* Heparin 5,000 UNIT/ML VIAL SQ SCH ×2 (05:55→17:19)
[2017-06-28] MEDS: Oseltamivir Phosphate 30 MG CAPSULE PO SCH (08:46)
[2017-06-28] MEDS: Lisinopril-HCTZ 20-12.5mg TABLET PO SCH (08:47)
[2017-06-28 09:19] LABS: BUN/Creatinine Ratio 15 (6-26); Blood Urea Nitrogen 13 mg/dL (8-23); Calcium 8.8 mg/dL (8.6-10.3); Carbon Dioxide 22 mEq/L (23-29); Chloride 102 mEq/L (98-107); Glucose 81 mg/dL (70-105); Osmolality,Calculated 281 (280-300); Potassium 3.9 mEq/L (3.5-5.1); Sodium 136 mEq/L (136-145); eGFR For African Americans > 60 (> 60); eGFR For Non-African Americans > 60 (> 60)
--- NOTE | 2017-06-28 16:57 | Internal Med Progress Note ---
Date of Encounter: 06/28/17 Time of Encounter: 11:10 - Assessment and plan (1) Acute metabolic encephalopathy Current Visit: Yes Status: Acute Assessment and plan: Family reports increased confusion and short-term memory loss over the last few weeks. Patient most likely has underlying dementia, may have superimposed delirium secondary to influenza. Today, again, patient was able to state that it is June, and her full name. Head CT and brain MRI negative for infarct. Urine negative for UTI. Chest x- ray negative for effusion or infiltrate. Supportive care plus Tamiflu for influenza. Dose 4/5 of Tamiflu given today. Continue to monitor patient condition and labs (2) Influenza A Current Visit: Yes Status: Acute Assessment and plan: Gen. weakness, body aches and cough. Respiratory PCR positive for influenza A, as well as RSV. Continue supportive care and Tamiflu. Dose 4/5 (3) Fall Current Visit: Yes Status: Acute Assessment and plan: Patient with witnessed fall with loss of consciousness at home. Patient lives with her granddaughter. The patient is unable to verbalize symptoms prior to the fall. She was evaluated by PT/OT who is recommending SNF, granddaughter is agreeable. special services agent has been consulted. Patient was denied by [facility], [facility] has been contacted for placement. Head CT, brain MRI negative for acute infarct. Echo revealed EF of 60% mild LV RIDGE, mild AR. Bilateral carotid Dopplers with nonstenotic plaque. PT/OT in the hospital. special services agent on board for discharge planning Patient near nurses station Fall precautions Qualifiers: Encounter type: initial encounter Qualified Code(s): W19.XXXA - Unspecified fall, initial encounter (4) HTN (hypertension) Current Visit: Yes Status: Acute Assessment and plan: Chronic. Continue home medications. Well controlled. Monitor vitals per admission orders Qualifiers: Hypertension type: essential hypertension Qualified Code(s): I10 - Essential (primary) hypertension (5) History of diabetes mellitus, type II Current Visit: Yes Status: Acute Assessment and plan: A1c 5.7. Continue SSI, diabetic diet, continue accuchecks achs. (6) DVT prophylaxis Current Visit: Yes Status: Acute Assessment and plan: Hepain SQ twice a day, AURY hose ordered. (7) LAKIA (acute kidney injury) Current Visit: Yes Status: Acute Assessment and plan: Improving. Sr Cr 0.89, GR >60 Continue to avoid nephrotoxins and continue gentle IVF hydration. Most likely due to poor po intake prior to admission due to Influenza. - Time Spent With Patient less than 15 minutes - Subjective Interval history: Pt was assessed at bedside at 1110 a.m. she was alert and awake, oriented to name and place. She denies headache, nausea, vomiting, abdominal pain. She denies chest pain or shortness of breath. Family to arrive today to speak with SUPPLY CHAIN INTERN and patient regarding placement. - Constitutional Vitals: Temp Pulse Resp BP Pulse Ox 98.0 F 80 15 128/79 97 06/28/17 11:30 06/28/17 11:30 06/28/17 11:30 06/28/17 11:30 06/28/17 11:30 General appearance: Present: cooperative, A&O X 2, pleasant, no acute distress. Absent: severe distress, answers questions appropriately - Head Head exam: Present: atraumatic, normal inspection, normocephalic - Eye Eye exam: Present: normal appearance, conjuntiva pink, sclera anicteric Pupils: Present: PERRL - Neck Neck exam general surgery: Present: supple, trachea midline. Absent: lymphadenopathy - Respiratory Respiratory exam: Present: CTAB. Absent: accessory muscle use, rales, rhonchi, wheezes - Cardiovascular Cardiovascular exam: Present: RRR, +S1, +S2. Absent: diastolic murmur, gallop, rubs, systolic murmur - GI/Abdominal GI/Abdominal exam: Present: normal bowel sounds, soft. Absent: distended, hepatomegaly, tenderness - Extremities Exam Extremities exam: Present: normal capillary refill, normal inspection, warm, radial pulses palpable and symmetrical. Absent: calf tenderness, cyanotic, pedal edema, tenderness - Neurological Exam Neurological exam: Present: alert, altered, oriented X3, no focal deficits. Absent: facial droop, speech deficit - Skin Skin exam: Present: dry, intact, normal color, warm. Absent: rash Internal Medicine: Result - Labs CBC & Chem 7: 06/24/17 06:01 06/28/17 08:55 Labs: BMP 06/28/17 08:55 Sodium 136 Potassium 3.9 Chloride 102 Carbon Dioxide 22 L BUN 13 Creatinine 0.89 Glucose 81 Calcium 8.8 Consult Discharge Plan - Plan Referrals: NONE,PCP [Primary Care Provider] -
[2017-06-29] MEDS: *HR* Heparin 5,000 UNIT/ML VIAL SQ SCH (05:39)
[2017-06-29] MEDS: Lisinopril-HCTZ 20-12.5mg TABLET PO SCH (08:29)
[2017-06-29] MEDS: Oseltamivir Phosphate 30 MG CAPSULE PO SCH (08:29)
[2017-06-29 11:29] VITALS: BP 104/67
--- NOTE | 2017-06-29 14:43 | Discharge Summary ---
Date of Encounter: 06/29/17 Time of Encounter: 11:30 - Discharge Diagnosis (1) Acute metabolic encephalopathy Priority: Secondary Status: Resolved Comments: Family reports increased confusion and short-term memory loss over the last few weeks. Patient most likely has underlying dementia, may have superimposed delirium secondary to influenza. Today, again, patient was able to state that it is June, and her full name. Head CT and brain MRI negative for infarct. Urine negative for UTI. Chest x- ray negative for effusion or infiltrate. Resolved. (2) Influenza A Priority: Secondary Status: Acute Comments: Gen. weakness, body aches and cough. Respiratory PCR positive for influenza A, as well as RSV. Patient has completed course of Tamiflu. Continue supportive treatment. (3) Fall Priority: Secondary Status: Acute Comments: Patient with witnessed fall with loss of consciousness at home. Patient lives with her granddaughter. The patient is unable to verbalize symptoms prior to the fall. She was evaluated by PT/OT who is recommending SNF, granddaughter is agreeable. Patient will be going to [facility]. Head CT, brain MRI negative for acute infarct. Echo revealed EF of 60% mild LV RIDGE, mild AR. Bilateral carotid Dopplers with nonstenotic plaque. Continue PT/OT Fall precautions Qualifiers: Encounter type: initial encounter Qualified Code(s): W19.XXXA - Unspecified fall, initial encounter (4) HTN (hypertension) Priority: Secondary Status: Chronic Comments: Well-controlled in inpatient setting. Chronic. Continue home medications. Qualifiers: Hypertension type: essential hypertension Qualified Code(s): I10 - Essential (primary) hypertension (5) History of diabetes mellitus, type II Priority: Secondary Status: Chronic Comments: A1c is 5.7. Continue home medications, diabetic diet, Accu-Cheks. (6) DVT prophylaxis Priority: Secondary Status: Acute Comments: Heparin subcutaneous BID, AURY hose were ordered. (7) LAKIA (acute kidney injury) Priority: Secondary Status: Resolved - Discharge Medications Home Medications: Lisinopril-HCTZ 20-12.5 [Prinzide 20-12.5] 1 tab PO DAILY #30 tablet 02/08/17 [ Rx] Simvastatin [Zocor] 20 mg PO DAILY 02/08/17 [History] Multivit-Min/FA/Lycopen/Lutein [Centrum Silver Tablet] 1 tab PO DAILY 06/23/17 [ History] Brimonidine Tartrate/Timolol [Combigan 0.2%-0.5% Eye Drops] 1 drop OP DAILY 05/30 [History] Allergies/Adverse Reactions: 3 Allergy/AdvReac Type Severity Reaction Status Date / Time No Known Allergies Allergy Verified 02/08/17 19:23 Date of admission: 06/26/17 18:56 Primary care physician: PCP NONE Consults: 06/29/17 07:57 Consult to Nutrition [CONS] Routine Comment: evaluation for supplements, decreased appetite and Consulting Provider: NUTRITION Reason for Dietary Consult: PO Supplementation Discharging clinician: Wilda Rosado Anticipated date of discharge: 06/29/17 - Patient Status Disposition: Transfer SNF Condition: Good Functional capacity at discharge: wheelchair bound Overall status at discharge: patient is back to baseline - Discharge Instructions Follow Up With: NONE,PCP [Primary Care Provider] - - Diet and Activity Activity: increase activity as tolerated Diet: advance to your usual diet Hospital course: Ms. Castellon is a 81 year old female who is admitted through the emergency department for a witnessed fall with possible consciousness, acute metabolic encephalopathy, dementia, influenza A. Patient will be discharged to [facility]. please see assessment and plan per hospital course. - Time Spent with Patient Total time spent providing and/or coordinating discharge services: Less than 30 minutes - Constitutional Vitals: Temp Pulse Resp BP Pulse Ox 97.9 F 84 18 104/67 97 06/29/17 11:28 06/29/17 11:28 06/29/17 11:28 06/29/17 11:28 06/29/17 11:28 General appearance: Present: cachectic, cooperative, A&O X 2, pleasant, no acute distress. Absent: severe distress, answers questions appropriately - Head Head exam: Present: atraumatic, normal inspection, normocephalic - Eye Eye exam: Present: normal appearance, PERRL, conjuntiva pink, sclera anicteric - Neck Neck exam general surgery: Present: supple, trachea midline. Absent: lymphadenopathy, tenderness - Respiratory Respiratory exam: Present: CTAB. Absent: accessory muscle use, rales, rhonchi, wheezes - Cardiovascular Cardiovascular exam: Present: RRR, +S1, +S2. Absent: diastolic murmur, gallop, rubs, systolic murmur - GI/Abdominal GI/Abdominal exam: Present: normal bowel sounds, soft. Absent: distended, hepatomegaly, tenderness - Extremities Exam Extremities exam: Present: normal capillary refill, warm, radial pulses palpable and symmetrical. Absent: calf tenderness, cyanotic, pedal edema, tenderness - Neurological Exam Neurological exam: Present: alert, oriented X3, no focal deficits. Absent: facial droop, speech deficit - Skin Skin exam: Present: dry, intact, normal color, warm. Absent: rash
--- NOTE | 2017-06-29 15:02 | Physician Discharge Referral ---
ExtendedCare Referral Info Provider in Charge after Transfer: PCP Institutional Level of Care: Skilled - Diagnosis (1) Acute metabolic encephalopathy Priority: Secondary Status: Resolved (2) Influenza A Priority: Primary Status: Acute (3) Fall Priority: Secondary Status: Acute (4) HTN (hypertension) Priority: Secondary Status: Chronic (5) History of diabetes mellitus, type II Priority: Secondary Status: Chronic (6) DVT prophylaxis Priority: Secondary Status: Acute (7) LAKIA (acute kidney injury) Priority: Secondary Status: Resolved Prognosis: Fair - Transfer Medications Home Medications: Lisinopril-HCTZ 20-12.5 [Prinzide 20-12.5] 1 tab PO DAILY #30 tablet 02/08/17 [ Rx] Simvastatin [Zocor] 20 mg PO DAILY 02/08/17 [History] Multivit-Min/FA/Lycopen/Lutein [Centrum Silver Tablet] 1 tab PO DAILY 06/23/17 [ History] Brimonidine Tartrate/Timolol [Combigan 0.2%-0.5% Eye Drops] 1 drop OP DAILY 05/30 [History] Allergies/Adverse Reactions: 3 Allergy/AdvReac Type Severity Reaction Status Date / Time No Known Allergies Allergy Verified 02/08/17 19:23 - Respiratory Orders Smoking Cessation: Smoking cessation has been advised. For more information, call the [place] Tobacco Quit Line at 9-014-VPTGNOW. CERTIFICATION: I certify that the transfer of the above named patient to an Extended Care Facility is necessary for the continuing treatment of the diagnosis listed. The above information is true and accurate reflection of patient's current condition. Confidential - Redisclosure prohibited without a patient's written consent.
== END 2017-06-29 16:30 | DRG 193 ==
LOC: 3BNU 10:04 → EMEROO 10:04 → 3BNU 17:44
PROVIDERS: ADMIT Internal Medicine; ATTEND Registered Nurse

== ENCOUNTER 2020-09-28 01:42 | Inpatient (IN) ==
[2020-09-28 05:33] LABS: Basophils # 0.1 K/mcL (0.0-0.2); Basophils % 0.5 %; Eosinophils # 0.1 K/mcL (0.0-0.6); Eosinophils % 0.5 %; Hemoglobin 11.8 g/dL (11.5-15.4); Immature Granulocytes % 0.2 % (0-4); Lymphocytes # 2.3 K/mcL (0.6-4.6); Lymphocytes % 17.9 %; Mean Corpuscular HGB Conc 31.9 g/dL (31.6-35.5); Mean Corpuscular Hemoglobin 31.7 pg (28.0-33.3); Mean Corpuscular Volume 99.5 fL (83.0-100.0); Mean Platelet Volume 10.2 fL (9.4-12.4); Monocytes # 1.2 K/mcL (0.0-1.3); Monocytes % 9.6 %; Neutrophils # 8.9 K/mcL (1.6-8.9); Platelet Count 284 K/mcL (140-400); Red Blood Count 3.72 M/mcL (3.82-4.97); Segmented Neutrophils % 71.3 %; White Blood Count 12.6 K/mcL (4.3-11.1)
[2020-09-28 05:36] LABS: Bacteria,Urine Few per hpf (None-Few); Bilirubin,Urine Negative (Negative); Blood,Urine Negative (Negative); Clarity,Urine Clear (Clear); Color,Urine Colorless (Yellow); Glucose,Urine (UA) Normal (Normal); Hyaline Casts,Urine Few per lpf (None Seen); Ketones,Urine Negative (Negative); Leukocyte Esterase,Urine Small (Negative); Nitrite,Urine Positive (Negative); Protein,Urine Negative (Neg-Trace); RBC,Urine 0-3 per hpf (0-3); Specific Gravity,Urine 1.009 (1.010-1.025); Squamous Epithelial Cell,Urine Few per hpf (None-Few); Urobilinogen,Urine Normal (Normal)
[2020-09-28 05:52] LABS: Calcium 9.6 mg/dL (8.6-10.3); Potassium 3.5 mEq/L (3.5-5.1)
[2020-09-28] MEDS ORDERED: cefTRIAXone 1,000 MG in 0.9 % Sodium Chloride Mini Bag 100 ML IVPB ONE (07:10)
[2020-09-28] MEDS ORDERED: Ondansetron 4 MG/2 ML VIAL IVP PRN (08:13)
[2020-09-28] MEDS ORDERED: Ringers Solution, Lactated 1,000 ML IVC ONE (08:15)
[2020-09-28] MEDS: QUEtiapine Fumarate 25 MG TABLET PO SCH (19:59)
[2020-09-29 05:05] LABS: Hemoglobin 10.5 g/dL (11.5-15.4); Mean Corpuscular HGB Conc 31.8 g/dL (31.6-35.5); Mean Corpuscular Hemoglobin 31.7 pg (28.0-33.3); Mean Corpuscular Volume 99.7 fL (83.0-100.0); Mean Platelet Volume 10.5 fL (9.4-12.4); Platelet Count 250 K/mcL (140-400); Red Blood Count 3.31 M/mcL (3.82-4.97); Red Cell Distribution Width 13.2 % (11.5-14.5); White Blood Count 8.5 K/mcL (4.3-11.1)
[2020-09-29 05:21] LABS: Calcium 8.7 mg/dL (8.6-10.3); Magnesium 1.9 mg/dL (1.6-2.6); Potassium 4.2 mEq/L (3.5-5.1)
[2020-09-29] MEDS ORDERED: Lisinopril-HCTZ 20-12.5mg TABLET PO SCH (09:00)
[2020-09-29] MEDS: cefTRIAXone 1,000 MG in Water for inj. (sterile) 10 ML IVP SCH (09:58)
[2020-09-29] MEDS: QUEtiapine Fumarate 25 MG TABLET PO SCH (20:41)
[2020-09-30 04:41] LABS: Basophils # 0.1 K/mcL (0.0-0.2); Basophils % 0.8 %; Eosinophils # 0.3 K/mcL (0.0-0.6); Hematocrit 34.3 % (35.3-44.9); Hemoglobin 11.3 g/dL (11.5-15.4); Immature Granulocytes % 0.3 % (0-4); Lymphocytes # 1.9 K/mcL (0.6-4.6); Lymphocytes % 26.1 %; Mean Corpuscular HGB Conc 32.9 g/dL (31.6-35.5); Mean Corpuscular Hemoglobin 32.1 pg (28.0-33.3); Mean Corpuscular Volume 97.4 fL (83.0-100.0); Mean Platelet Volume 10.1 fL (9.4-12.4); Monocytes # 0.9 K/mcL (0.0-1.3); Monocytes % 12.2 %; Neutrophils # 4.1 K/mcL (1.6-8.9); Platelet Count 270 K/mcL (140-400); Red Blood Count 3.52 M/mcL (3.82-4.97); Segmented Neutrophils % 56.6 %; White Blood Count 7.2 K/mcL (4.3-11.1)
[2020-09-30 04:55] LABS: Calcium 9.2 mg/dL (8.6-10.3); Potassium 3.9 mEq/L (3.5-5.1)
[2020-09-30] MEDS: cefTRIAXone 1,000 MG in Water for inj. (sterile) 10 ML IVP SCH (10:04)
[2020-09-30] MEDS: Acetaminophen 325 MG TABLET PO PRN ×2 (10:14→17:57)
[2020-09-30] MEDS: *HR* Heparin 5,000 UNIT/ML VIAL SQ SCH (22:02)
[2020-10-01] MEDS: *HR* Heparin 5,000 UNIT/ML VIAL SQ SCH ×2 (05:07→18:59)
[2020-10-01 06:55] LABS: Calcium 9.5 mg/dL (8.6-10.3); Potassium 3.8 mEq/L (3.5-5.1)
[2020-10-01] MEDS ORDERED: 0.9 % Sodium Chloride 1,000 ML IVC SCH (09:30)
[2020-10-01] MEDS ORDERED: Haloperidol Lactate 5 MG/ML VIAL IM PRN (18:17)
[2020-10-01] MEDS: Amoxicillin/Clavulanate 500 MG TABLET PO SCH (18:57)
[2020-10-02 05:13] LABS: Hematocrit 34.2 % (35.3-44.9); Hemoglobin 11.2 g/dL (11.5-15.4); Mean Corpuscular HGB Conc 32.7 g/dL (31.6-35.5); Mean Corpuscular Hemoglobin 31.9 pg (28.0-33.3); Mean Corpuscular Volume 97.4 fL (83.0-100.0); Mean Platelet Volume 10.4 fL (9.4-12.4); Platelet Count 290 K/mcL (140-400); Red Blood Count 3.51 M/mcL (3.82-4.97); Red Cell Distribution Width 13.2 % (11.5-14.5); White Blood Count 9.2 K/mcL (4.3-11.1)
[2020-10-02] MEDS: *HR* Heparin 5,000 UNIT/ML VIAL SQ SCH (05:50)
[2020-10-02 07:08] LABS: Calcium 9.3 mg/dL (8.6-10.3); Magnesium 2.1 mg/dL (1.6-2.6); Potassium 3.9 mEq/L (3.5-5.1)
[2020-10-02] MEDS: Amoxicillin/Clavulanate 500 MG TABLET PO SCH (08:01)
[2020-10-02] MEDS ORDERED: *HR* LORazepam 2 MG/ML VIAL IVP ONE (10:07)
[2020-10-02] MEDS ORDERED: *HR* LORazepam 1 MG TABLET PO ONE (10:51)
[2020-10-02 13:33] LABS: Influenza A PCR Negative (Negative); Influenza B PCR Negative (Negative); Resp. Syncytial Virus PCR Negative (Negative)
[2020-10-02 13:37] LABS: SARS-CoV-2 by PCR (In House) Negative (Negative)
[2020-10-02 15:06] VITALS: BP 117/70
[2020-10-02] MEDS ORDERED: QUEtiapine Fumarate 25 MG TABLET PO SCH (21:00)
== END 2020-10-02 17:00 | DRG 689 ==
LOC: EMEROOARM 01:42 → 3ANU 01:42 → SUATTDRO 07:58 → 3ANU 08:41 → SUATTDRO 09-29 14:29
PROVIDERS: ADMIT Internal Medicine; ATTEND Internal Medicine